=== PATIENT | male | born 1970 | race Caucasian/White ===

== ENCOUNTER 2021-10-28 09:48 | Observation (INO) | payer OTHER, SELFPAY ==
[2021-10-28] MEDS ORDERED: Aspirin Chewable 81 MG TAB ONE (10:10)
[2021-10-28 10:25] LABS: #Basophils 0.1 thou/uL (0.0-0.2); #Eosinphils 0.1 thou/uL (0.0-0.7); #Monocytes 0.8 thou/uL (0.11-0.59); #Neutrophils 4.6 thou/uL (1.40-6.50); %Eosinophils 1.3 % (0.0-10.0); %Lymphocytes 41.8 % (21.0-51.0); %Monocytes 8.2 % (0.0-10.0); %Neutrophils 47.7 % (42.0-75.0); Hemoglobin 17.6 g/dL (14.0-18.0); Mean Corpuscular HGB CONC 33.9 g/dL (32.0-36.0); Mean Corpuscular Hemoglobin 31.4 pg (27.0-31.0); Mean Corpuscular Volume 92.8 fL (78.0-98.0); Mean Platelet Volume 8.3 fL (7.4-10.4); Platelet Count 223 thou/uL (130-400); RBC Distribution Width 11.8 % (11.5-14.5); White Blood Cell (WBC) Count 9.6 thou/uL (4.8-10.8)
[2021-10-28 10:52] LABS: ALT (SGPT) 39 U/L (8-55); AST (SGOT) 34 U/L (5-34); Albumin 4.9 g/dL (3.5-5.0); Alkaline Phosphatase 70 U/L (40-110); Anion Gap 15 mmol/L (10-20); BUN (Urea Nitrogen) 12 mg/dL (8.9-20.6); Bilirubin, Total 1.3 mg/dL (0.2-1.2); Calc. Creatinine Clearance 0 mL/min (70-130); Calcium 9.8 mg/dL (7.8-10.44); Carbon Dioxide 22 mmol/L (22-29); Chloride 105 mmol/L (98-107); Globulin 3.2 g/dL (2.4-3.5); Glucose 111 mg/dL (70-105); Lipase 24 U/L (8-78); Potassium 4.1 mmol/L (3.5-5.1); Protein, Total 8.1 g/dL (6.0-8.3); Sodium 138 mmol/L (136-145)
[2021-10-28] MEDS ORDERED: Nitroglycerin 0.4 MG TAB (25 Tab Bottle) SL PRN (12:10)
[2021-10-28] MEDS ORDERED: Aspirin 325 MG TAB PO SCH (12:15)
[2021-10-28] MEDS ORDERED: Acetaminophen 500 MG TAB ONE (12:48)
[2021-10-28 15:02] LABS: Troponin I Less than 0.010 ng/mL (< 0.028)
[2021-10-28 16:44] LABS: Troponin I Less than 0.010 ng/mL (< 0.028)
[2021-10-28 16:53] VITALS: BMI 33.7
[2021-10-28] MEDS: Heparin 5,000 UNITS/ML VIAL SC SCH ×2 (17:40→20:59)
[2021-10-28] MEDS ORDERED: Atorvastatin Calcium 40 MG TAB PO SCH (21:00)
[2021-10-29 03:11] LABS: SARS-CoV-2 PCR by NAA Not Detected (NotDetected)
[2021-10-29] MEDS ORDERED: Aspirin Chewable 81 MG TAB PO SCH (09:00)
[2021-10-29] MEDS: Heparin 5,000 UNITS/ML VIAL SC SCH ×2 (12:24→14:18)
[2021-10-29 12:42] VITALS: BP 131/74; TEMP 98.1
== END 2021-10-29 15:14 | disposition home or self-care (01) ==
LOC: ERS 09:48 → 2NO 12:04
PROVIDERS: ADMIT Internal Medicine; ATTEND Internal Medicine
DX: R07.89 Other chest pain (principal); I10 Essential (primary) hypertension; F17.210 Nicotine dependence, cigarettes, uncomplicated; E78.5 Hyperlipidemia, unspecified; I08.1 Rheumatic disorders of both mitral and tricuspid valves; Z82.49 Family history of ischemic heart disease and other diseases of the circulatory system; Z79.899 Other long term (current) drug therapy; Z88.0 Allergy status to penicillin; Z20.822 Contact with and (suspected) exposure to COVID-19
CPT/HCPCS: 36415; 71045; 78452; 80053; 83690; 84484; 85025; 93005; 93010; 93017; 93306; 94760; A9500; G0378; J1644; U0003; U0005